=== PATIENT | male | born 1975 | race Two or more races ===

== ENCOUNTER 2019-04-10 19:00 | Emergency (ER) | payer BC ==
[~2019-04-10] VITALS: Ht 180.3 cm; Wt 68.0 kg
--- NOTE | 2019-04-10 19:41 | NUR ---
Dr. Mancera at bedside for MSE.
[2019-04-10 19:55] VITALS: BP 105/70
== END 2019-04-10 19:56 | disposition home or self-care (01) ==
LOC: ER 19:01
DX: S01.81XA Laceration without foreign body of other part of head, initial encounter (principal); W22.8XXA Striking against or struck by other objects, initial encounter; Y93.89 Activity, other specified; Y92.89 Other specified places as the place of occurrence of the external cause; Y99.8 Other external cause status
CPT/HCPCS: A4663